=== PATIENT | female | born 1990 | race Caucasian/White ===

== ENCOUNTER 2016-12-18 21:49 | Emergency (ER) | payer OTHER ==
[~2016-12-18] VITALS: Ht 154.9 cm; Wt 64.4 kg
[~2016-12-18 21:49] MED LIST: FLONASE16 G1 BOTH NARES; LIDOCAINE20 MG/1 M5 PO; MOTRIN800 MG PO; MUCUS ER600 MG PO; NAPROSYN500 MG PO; NOHOMEMEDS; PEN-VEE K,VEET500 MG PO; PERCOCET 5/31 TABLET PO; TESSALON PERLE100 MG PO; TRAMADOL HCL50 MG PO; ULTRACET1 TABLET PO
[2016-12-19 00:31] LABS: BASOPHIL COUNT 0.1 K/uL (0-0.1); EOSINOPHIL (%) 2.5 % (0-5); EOSINOPHIL COUNT 0.3 K/uL (0-0.3); HEMATOCRIT 42.7 % (36.0-46.0); IMMATURE GRANULOCYTE (%) 0.6 % (0.0-0.7); IMMATURE GRANULOCYTE COUNT 0.1 K/uL; INSTRUMENT ABS NEUTROPHIL CT 7.9 K/uL; LYMPHOCYTE COUNT 3.1 K/uL (1.0-2.8); MCH 34.2 PG (29.0-34.0); MCHC 34.4 G/DL (30.0-36.0); MCV 99.3 FL (83-99); MEAN PLAT.VOLUME 9.5 uM^3 (9.5-12.4); MONOCYTE (%) 7.2 % (3-12); MONOCYTE COUNT 0.9 K/uL (0-0.8); NEUTROPHIL (%) 64.1 % (45-76); NEUTROPHIL COUNT 7.9 K/uL (1.8-6.4); PLATELET COUNT 244 K/uL (156-360); RBC DIS.WIDTH-CV 13.2 % (11.8-14.6); RBC DIS.WIDTH-SD 48.2 % (39-53); WHITE BLOOD COUNT 12.4 K/uL (4.1-10.2)
[2016-12-19 00:36] LABS: ADD MIUA? YES; BILIRUBIN SMALL; BLOOD MODERATE; COLOR AMBER ((YELLOW)); GLUCOSE (STRIP) NEGATIVE; KETONES NEGATIVE; LEUKOCYTES NEGATIVE; NITRITE NEGATIVE; PROTEIN (STRIP) 100; SPECIFIC GRAVITY 1.026 (1.000-1.030); UROBILINOGEN 0.2 MG/DL (0.2-1.0)
[2016-12-19 00:45] LABS: AMPHETAMINE NEGATIVE (500 ng/mL); BARBITURATES NEGATIVE (200 ng/mL); BENZODIAZEPINES NEGATIVE (150 ng/mL); COCAINE NEGATIVE (150 ng/mL); INTERNAL CONTROLS VALID? YES; METHADONE NEGATIVE (200 ng/mL); METHAMPHETAMINE NEGATIVE (500 ng/mL); OPIATES (MORPHINE) NEGATIVE (100 ng/mL); OXYCODONE NEGATIVE (100 ng/mL); PHENCYCLIDINE NEGATIVE (25 ng/mL); PROPOXYPHENE NEGATIVE (300 ng/mL); THC CANNABINOIDS PRESUMPTIVE POSITIVE (50 ng/mL); TRICYCLIC ANTIDEPRESSANTS NEGATIVE (300 ng/mL)
[2016-12-19 00:46] LABS: ADD MEDTOX COMMENT Y
[2016-12-19 00:47] LABS: CHLORIDE 104 mEq/L (99-109); POTASSIUM 3.2 mEq/L (3.7-5.4); SODIUM 141 mEq/L (136-147)
[2016-12-19 00:50] LABS: GLUCOSE 88 mg/dL (70-99)
[2016-12-19 00:51] LABS: ANION GAP 15 MEQ/L (2-14); TOTAL BILIRUBIN 0.7 mg/dL (0.0-1.0)
[2016-12-19 00:52] LABS: SERUM ETHYL ALCOHOL < 10 mg/dL
[2016-12-19 00:53] LABS: ALKALINE PHOSPHATASE 64 IU/L (3-129); GFR ESTIMATE (CALCULATED) > 59 mL/min/
[2016-12-19 00:54] LABS: UREA NITROGEN (BUN) 6 mg/dL (9-23)
[2016-12-19 00:57] LABS: LIPASE 17 U/L (1.0-51.0)
[2016-12-19 01:03] LABS: QUANTITATIVE HCG < 4.0 MIU/ML
[2016-12-19 01:10] LABS: BACTERIA 3+ /HPF; EPITHELIAL CELLS 2+ /HPF; MUCUS 4+ /LPF; RED BLOOD CELLS 15-20 /HPF (0-5); UCUL ADDED? NO; WHITE BLOOD CELLS NONE SEEN /HPF (0-5)
[2016-12-19] MEDS ORDERED: ZOFRAN4 MG PO (03:53)
[2016-12-19 04:06] VITALS: BP 96/55
== END 2016-12-19 04:19 | disposition home or self-care (01) ==
LOC: EME 21:49
PROVIDERS: Emergency Medicine
DX: E86.0 Dehydration (principal); R51 Headache; R41.0 Disorientation, unspecified; R42 Dizziness and giddiness; F12.10 Cannabis abuse, uncomplicated; R10.10 Upper abdominal pain, unspecified; R11.0 Nausea; S80.212A Abrasion, left knee, initial encounter; X58.XXXA Exposure to other specified factors, initial encounter; F17.200 Nicotine dependence, unspecified, uncomplicated
CPT/HCPCS: 70450; 71020; 80053; 81003; 83605; 83690; 84702; 84999; 85025; 93005; 99281; 99285; G0480; J7030